=== PATIENT | female | born 1955 | race Caucasian/White ===

== ENCOUNTER → 2016-11-12 | Outpatient (CLI) | payer MEDICARE, OTHER ==
--- NOTE | ~2016-11-12 | MR145 ---
[facility] A Service of [facility] RADIOLOGY TEXT RESULTS PATIENT: JOY DONG LOCATION: [facility] : 53 UNIT #: [id number] AGE: [address]: Juan David Puckett MD SEX: F ORDER DR: [id number] [address] [address] [id number] O MR#: [id number] Acc #: [id number] NAME: JOY DONG : 1955 SEX: F STUDY DATE/TIME: 11/12/2016 9:36 UNIT: [facility] ROOM: STUDY DESCRIPTION: MR MRCP WWo Contrast Attending Physician: Juan David Puckett M.D. Referring Physician: Juan David Puckett M.D. Ordering Physician: Juan David Puckett M.D. Primary Care Physician: Laina Flores M.D. [facility] REPORT This report is preliminary unless electronic signature is present. EXAM MR abdomen with and without contrast MRCP protocol INDICATIONS Previous history of pancreatitis on and off for the past several years. Previous pancreatic stent placement. Generalized abdominal pain and diarrhea since October 19, 2016. PROCEDURE Multiplanar, multisequence MR imaging of the abdomen prior to and following 17 mL of MultiHance. MRCP sequences were included COMPARISON None FINDINGS Abdomen without contrast: Liver is normal size and morphology. There is significant hepatic steatosis. The spleen, kidneys, adrenal glands and bowel loops have normal signal. There is no evidence for acute pancreatitis. Previous cholecystectomy. Common duct measures 6-7 mm. No evidence for choledocholithiasis. Pancreatic duct nondilated. There is mild rather diffuse arborization of pancreatic side duct throughout the pancreas. There is a 4-5 mm cyst in the pancreatic body. Abdomen with contrast: No abnormal enhancement. No pancreatic mass. IMPRESSION 1. Changes of mild chronic pancreatitis. No evidence for acute pancreatitis. 2. Tiny cyst in the pancreatic body, probably representing benign incidental finding or small pseudocyst. This can be followed to [facility] A Service of [facility] RADIOLOGY TEXT RESULTS PATIENT: JOY DONG LOCATION: [facility] #: [id number] : 53 UNIT #: [id number] AGE: [address]: Juan David Puckett MD SEX: F ORDER DR: document stability as desired clinically. 3. Hepatic steatosis. Dictated by... Rhett Davis M.D. THIS IS AN ELECTRONICALLY VERIFIED REPORT Rhett Davis M.D. at 11/14/2016 7:33 AM DEREK/matthew TD: 11/13/2016 13:05 JOB #: [id number] MRI [facility]ENTER REPORT Page 1 of 1
== END | disposition home or self-care (01) ==
LOC: SMRI 09:27
DX: K85.90 Acute pancreatitis without necrosis or infection, unspecified (principal); R10.9 Unspecified abdominal pain; R11.0 Nausea; K86.1 Other chronic pancreatitis; K76.0 Fatty (change of) liver, not elsewhere classified
CPT/HCPCS: 74183; A9581